=== PATIENT | female | born 1990 | race American Indian/Alaskan Native ===

== ENCOUNTER 2019-10-22 02:01 | Emergency (ER) | payer SELFPAY ==
[2019-10-22] MEDS ORDERED: LACTATED RINGERS 1,000 ML IV ONE (02:22)
[2019-10-22] MEDS ORDERED: MORPHINE 4 MG/1 ML INJ IV ONE (02:22)
[2019-10-22] MEDS ORDERED: ONDANSETRON 4 MG/2 ML INJ IV ONE (02:22)
[2019-10-22 03:11] LABS: Basophils % (Auto) 0.5 % (0.0-1.8); Eosinophils # (Auto) 0.1 K/mm3 (0.0-0.4); Eosinophils % (Auto) 1.7 % (0.0-4.3); Hematocrit 38.4 % (30.3-42.9); Hemoglobin 13.3 gm/dl (10.1-14.3); Lymphocytes # (Auto) 3.3 K/mm3 (1.2-5.4); Lymphocytes % (Auto) 36.6 % (13.4-35.0); Mean Corpuscular HGB Conc 35 % (30-34); Mean Corpuscular Volume 94 fl (79-97); Monocytes # (Auto) 0.7 K/mm3 (0.0-0.8); Monocytes % (Auto) 7.9 % (0.0-7.3); Platelet Count 225 K/mm3 (140-440); Red Cell Distribution Width 12.6 % (13.2-15.2)
[2019-10-22 03:33] LABS: Alanine Aminotransferase 24 units/L (7-56); Albumin 3.9 g/dL (3.9-5); BUN/Creatinine Ratio 25; Blood Urea Nitrogen 15 mg/dL (7-17); Calcium 9.3 mg/dL (8.4-10.2); Hemolysis Index 8
--- NOTE | 2019-10-22 03:44 | Ultrasound Report ---
Obstetrical ultrasound. HISTORY: . Bleeding. FINDINGS: Imaging was performed transabdominally and endovaginally. The uterus measures 9.7 x 5.4 x 5 .2 cm. The endometrial stripe measures 6.7 mm. No intrauterine . Right ovary measures 3.2 x 2.3 x 1.8 cm. Left ovary measures 3.6 x 1.8 x 3.3 cm. Both ovaries demonst rate appropriate flow. Negative for adnexal mass or fluid. IMPRESSION: No intrauterine . Signer Name: Prosper Patel MD Signed: 10/22/2019 3:40 AM Workstation Name: [id number]
[2019-10-22 04:13] LABS: Bacteria,Urine 1+ /HPF (Negative); Bilirubin,Urine NEG (Negative); Blood,Urine LG (Negative); Color,Urine Red (Yellow); Mucus,Urine 3+ /HPF; Urobilinogen,Urine < 2.0 mg/dL (<2.0)
[2019-10-22 04:26] LABS: RBC,Urine > 182.0 /HPF (0.0-6.0)
--- NOTE | 2019-10-22 04:27 | Emergency Department Report ---
ED Female HPI - General Chief complaint: Abdominal Pain Stated complaint: MISCARRIAGE Source: patient Mode of arrival: Ambulatory Limitations: No Limitations - History of Present Illness Initial comments: Patient is a A0 29-year-old female who is approximately 8 weeks gestation and who presents to the ED with complaint of acute onset persistent severe suprapubic pain with heavy vaginal bleeding for the last 3 days. Patient states that in the last 12 hours the bleeding has been most severe and heavier with worsening pelvic pain. Patient states that 2 hours prior to arrival in the ED, she expelled some tissues at home that she suspected could be product of conception. Patient states that the pain and bleeding has worsened. Patient states that she was evaluated by her [employer] physician 5 days ago and at that time the was viable as the fetus had heart tones and the implantation was intrauterine of approximately 8 weeks gestation based on the ultrasound reading on that day. Patient denies dizziness, syncope, fever, chills, dysuria, traumatic injury, back pain, chest pain or shortness of breath, diarrhea, sore throat, cough or urinary urgency and frequency. MD Complaint: vaginal bleeding, pelvic pain, other (nausea and vomiting) -: Sudden, days(s) (2) Location: suprapubic Radiation: non-radiating Severity: severe Severity scale (0 -10): 9 Quality: cramping, sharp Consistency: constant Improves with: none Worsens with: movement Are you Now?: Yes (suspects she may have had miscarriage) Associated Symptoms: denies other symptoms, vaginal discharge, vaginal bleeding, abdominal pain, nausea/vomiting, loss of appetite. denies: dysuria, hematuria, shortness of breath, syncope, weakness, other - Related Data Sexually active: Yes : 4 Para: 3 A: 0 Previous Rx's Medication Instructions Recorded Last Taken Type Acetaminophen [Tylenol] 500 mg PO Q6HR PRN #30 tablet 10/22/19 Unknown Rx Ondansetron [Zofran Odt] 4 mg PO Q6HR PRN #20 tab.rapdis 10/22/19 Unknown Rx cephALEXin [Keflex] 500 mg PO Q8HR #30 cap 10/22/19 Unknown Rx Allergies Allergy/AdvReac Type Severity Reaction Status Date / Time No Known Allergies Allergy Verified 10/22/19 02:06 ED Review of Systems ROS: Stated complaint: MISCARRIAGE Other details as noted in HPI Constitutional: denies: chills, fever Eyes: denies: eye pain, eye discharge, vision change ENT: denies: ear pain, throat pain Respiratory: denies: cough, shortness of breath, wheezing Cardiovascular: denies: chest pain, palpitations Endocrine: no symptoms reported Gastrointestinal: abdominal pain (suprapubic), nausea, vomiting. denies: diarrhea Genitourinary: abnormal menses (heavy vaginal bleeding). denies: urgency, dysuria, discharge Musculoskeletal: denies: back pain, joint swelling, arthralgia Skin: denies: rash, lesions Neurological: denies: headache, weakness, paresthesias Psychiatric: denies: anxiety, depression Hematological/Lymphatic: denies: easy bleeding, easy bruising ED Past Medical Hx - Past Medical History Previous Medical History?: No - Surgical History Past Surgical History?: Yes Additional Surgical History: x1 - Social History Smoking Status: Never Smoker Substance Use Type: None - Medications Home Medications: Home Medications Medication Instructions Recorded Confirmed Last Taken Type Acetaminophen [Tylenol] 500 mg PO Q6HR PRN #30 tablet 10/22/19 Unknown Rx Ondansetron [Zofran Odt] 4 mg PO Q6HR PRN #20 tab.rapdis 10/22/19 Unknown Rx cephALEXin [Keflex] 500 mg PO Q8HR #30 cap 10/22/19 Unknown Rx ED Physical Exam - General Limitations: No Limitations General appearance: alert, in no apparent distress - Head Head exam: Present: atraumatic, normocephalic, normal inspection - Eye Eye exam: Present: normal appearance, PERRL, EOMI Pupils: Present: normal accommodation - ENT ENT exam: Present: normal exam, normal orophraynx, mucous membranes moist, TM's normal bilaterally, normal external ear exam - Neck Neck exam: Present: normal inspection, full ROM. Absent: tenderness, meningismus, lymphadenopathy - Respiratory Respiratory exam: Present: normal lung sounds bilaterally. Absent: respiratory distress, wheezes, rales, rhonchi, chest wall tenderness, accessory muscle use, prolonged expiratory - Cardiovascular Cardiovascular Exam: Present: regular rate, normal rhythm, normal heart sounds. Absent: systolic murmur, diastolic murmur, rubs, gallop - GI/Abdominal GI/Abdominal exam: Present: soft, tenderness (Palpable severe suprapubic tenderness with guarding), guarding, normal bowel sounds. Absent: rebound, hyperactive bowel sounds, hypoactive bowel sounds - Bi-manual exam: Present: other (Pelvic exam deferred due to severe vaginal bleeding and patient's discomfort) - Extremities Exam Extremities exam: Present: normal inspection, full ROM, normal capillary refill - Back Exam Back exam: Present: normal inspection, full ROM. Absent: tenderness, CVA tenderness (R), CVA tenderness (L), muscle spasm, paraspinal tenderness, vertebral tenderness - Neurological Exam Neurological exam: Present: alert, oriented X3, CN II-XII intact, normal gait, reflexes normal - Psychiatric Psychiatric exam: Present: normal affect, normal mood - Skin Skin exam: Present: warm, dry, intact, normal color. Absent: rash ED Course Vital Signs 10/22/19 02:05 Temperature 98.4 F Pulse Rate 78 Respiratory 18 Rate Blood Pressure 143/52 O2 Sat by Pulse 97 Oximetry ED Medical Decision Making - Lab Data Result diagrams: 10/22/19 02:39 10/22/19 02:39 - Radiology Data Radiology results: report reviewed, image reviewed Findings [facility] [address] [place] [address] Ultrasound Report Signed Patient: CRYSTAL FLOR MR#: [id number] : 1990 Acct:[id number] Age/Sex: 29 / F ADM Date: 10/22/19 Loc: ED Attending Dr: Ordering Physician: CRISTOBAL THOMPSON Date of Service: 10/22/19 Procedure(s): US OB transvaginal Accession Number(s): [id number] cc: CRISTOBAL THOMPSON Obstetrical ultrasound. HISTORY: . Bleeding. FINDINGS: Imaging was performed transabdominally and endovaginally. The uterus measures 9.7 x 5.4 x 5.2 cm. The endometrial stripe measures 6.7 mm. No intrauterine . Right ovary measures 3.2 x 2.3 x 1.8 cm. Left ovary measures 3.6 x 1.8 x 3.3 cm. Both ovaries demonstrate appropriate flow. Negative for adnexal mass or fluid. IMPRESSION: No intrauterine . Signer Name: Prosper Patel MD Signed: 10/22/2019 3:40 AM Workstation Name: [id number] Transcribed By: ES Dictated By: Prosper Patel MD Electronically Authenticated By: Prosper Patel MD Signed Date/Time: 10/22/19339 DD/ 8 TD/TT: - Medical Decision Making This is a A0 29-year-old female who is approximately 8 weeks gestation and who presents to the ED with complaint of acute onset persistent severe suprapubic pain with heavy vaginal bleeding for the last 3 days. Patient states that in the last 12 hours the bleeding has been most severe and heavier with worsening pelvic pain. Patient states that 2 hours prior to arrival in the ED, she expelled some tissues at home that she suspected could be product of conception. Patient states that the pain and bleeding has worsened. Patient states that she was evaluated by her [employer] physician 5 days ago and at that time the was viable as the fetus had heart tones and the implantation was intrauterine of approximately 8 weeks gestation based on the ultrasound reading on that day. In the ED, patient is alert and oriented x3 and is not in distress but appears to be in pain. Patient was treated for pain and also given 1 L LR IV bolus and also treated for nausea and vomiting. Lab test results were reviewed and showed hCG quant of 1903, mild hyponatremia 135 mmol/L and mild hypokalemia of 3.5 mmol/L and hyperglycemia of 119 mg/dL. Urinalysis shows significant urinary tract infection. Patient was also treated in the ED with Rocephin 1 g IV x1 for UTI. Transvaginal and pelvic ultrasound showed uterus that measures 9.7 x 5.4 x 5.2 cm. The endometrial stripe measures 6.7 mm. No intrauterine . These findings suggest that the patient may have had a complete miscarriage based on these imaging findings as well as low hCG quant of 1903. Patient was discharged home and advised to follow-up with her [employer] physician or return to the ED in 48 hours for serial hCG quant check to ascertain the complete miscarriage. Patient was otherwise advised to maintain a complete pelvic rest with no strenuous or physical activity and take Tylenol as needed for pain. - Differential Diagnosis miscarriage; ectopic ; UTI; Dermoid cyst; subchorionic bleed Critical care attestation.: If time is entered above; I have spent that time in minutes in the direct care of this critically ill patient, excluding procedure time. ED Disposition Clinical Impression: Complete miscarriage, Acute urinary tract infection Abdominal pain Qualifiers: Abdominal location: lower abdomen, unspecified Qualified Code(s): R10.30 - Lower abdominal pain, unspecified Disposition: TO HOME OR SELFCARE Is pt being admited?: No Does the pt Need Aspirin: No Condition: Stable Instructions: Abdominal Pain (ED), Spontaneous Miscarriage (ED), Urinary Tract Infection in Women (ED) Additional Instructions: La ecografa transvaginal no muestra un embarazo intrauterino y esto significa que es posible que haya tenido un aborto espontneo completo. Mantenga un desca nso plvico completo sin actividades fsicas o extenuantes. [place] medicamentos para el dolor segn sea necesario con la comida, tome muchos lquidos. Regrese al servicio de urgencias o al mdico obstetra / gineclogo en 48 horas para volver a verificar y confirmar el aborto espontneo completo mediante pruebas de laboratorio repetidas. De lo contrario, regrese al servicio de urgencias de inmediato si ladonna sntomas empeoran. Prescriptions: Acetaminophen [Tylenol] 500 mg PO Q6HR PRN #30 tablet PRN Reason: Pain , Severe (7-10) cephALEXin [Keflex] 500 mg PO Q8HR #30 cap Ondansetron [Zofran Odt] 4 mg PO Q6HR PRN #20 tab.rapdis PRN Reason: Nausea Referrals: RACHAEL BARRETO MD [Staff Physician] - 2-3 Days Time of Disposition: 04:54 Print Language: [place]
[2019-10-22] MEDS ORDERED: cefTRIAXone/NS 1 GM/50 ML 1 GM/50 ML BAG IV ONE (04:46)
[2019-10-22 05:42] VITALS: BP 128/60
== END 2019-10-22 05:43 | disposition home or self-care (01) ==
LOC: ED 02:01
DX: O03.9 Complete or unspecified spontaneous abortion without complication (principal); O23.41 Unspecified infection of urinary tract in pregnancy, first trimester; O26.891 Other specified pregnancy related conditions, first trimester; R10.2 Pelvic and perineal pain; R11.2 Nausea with vomiting, unspecified; Z3A.08 8 weeks gestation of pregnancy; Z98.890 Other specified postprocedural states; Z79.899 Other long term (current) drug therapy
CPT/HCPCS: 36415; 76801; 76817; 80053; 81001; 84702; 85025; 86900; 86901; 87086; 96361; 96365; 96375; 99284; J0696; J2270; J2405; J7120